=== PATIENT | male | born 2000 | race Caucasian/White ===

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

== ENCOUNTER 2019-01-21 15:35 | Emergency (ER) | payer OTHER ==
[2019-01-21 15:39] VITALS: TEMP 98.6
[2019-01-21] MEDS ORDERED: PANTOPRAZOLE 40 MG/10 ML VIAL IVP STA (16:14)
[2019-01-21] MEDS ORDERED: METOCLOPRAMIDE 5 MG/ML 2 ML VIAL IVP STA (16:14)
[2019-01-21] MEDS ORDERED: SODIUM CHLORIDE 0.9% 1,000 ML IV STA (16:14)
--- NOTE | 2019-01-21 16:20 | ED ---
General Adult HPI - General Chief complaint: Abdominal Pain Stated complaint: NVD Time Seen by Provider: 01/21/19 15:43 Source: patient, family, RN notes reviewed, old records reviewed Mode of arrival: ambulatory Limitations: no limitations - History of Present Illness Initial comments: Chief complaint and history of present illness is a 18-year-old male here with his significant other. The patient was seen last night at another emergency room. His complaint and same as it is now. They told him to come here should his problem persists. Patient has had nausea vomiting upset stomach for many years. He states it started when he was younger. He thinks could be related to anxiety. The patient also admits to smoking marijuana to 3 times per day. We did discuss possible cause and effect of anxiety and marijuana use and abuse. The patient also has had emotional problems in the past. He will be contacting [facility] when he returns to his home town. Denying any thoughts of suicide or severe depression at this time. - Related Data Home Medications Medication Instructions Recorded Confirmed Lisdexamfetamine Dimesylate 60 mg PO QAM 07/22/17 07/22/17 [Vyvanse] Previous Rx's Medication Instructions Recorded FLUoxetine HCL [PROzac] 20 mg PO DAILY #30 cap 07/26/17 Famotidine [Pepcid] 20 mg PO DAILY #30 tablet 01/21/19 Ondansetron Odt [Zofran Odt] 4 mg PO Q8HR PRN #10 tab 01/21/19 Allergies Allergy/AdvReac Type Severity Reaction Status Date / Time No Known Allergies Allergy Verified 01/21/19 15:38 Review of Systems ROS Statement: Those systems with pertinent positive or pertinent negative responses have been documented in the HPI. Review of systems. No headache or visual acuity. No chest pain. Occasional epigastric discomfort. States he vomits frequently. Smoked marijuana 2-3 times per day for the past year. Started smoking was 15. Patient states he does not see any blood in the vomit. Difficult to keep even fluids down at times. Patient admits that he's had depression and emotional issues and anxiety since his school age. He states his mother was alcoholic and was using marijuana and cocaine while he was in utero. Patient denies any significant medical problems other than the frequency of upset stomach anxiety nausea and vomiting. Patient's family history mother history as noted above. No cancers family. Patient denies ALLERGIES. Denies drugs. Other than marijuana. ROS Other: All systems not noted in ROS Statement are negative. Past Medical History Additional Past Medical History / Comment(s): orthostatic hypotension, alcohol affects. History of Any Multi-Drug Resistant Organisms: None Reported Past Surgical History: No Surgical Hx Reported Past Anesthesia/Blood Transfusion Reactions: No Reported Reaction Past Psychological History: ADD/ADHD, Anxiety, Depression Smoking Status: Current some day smoker Past Alcohol Use History: None Reported Past Drug Use History: Marijuana - Past Family History Father Additional Family Medical History / Comment(s): Pt was adopted at the age of 7yrs. His biological father was bipolar and depression. Mother Additional Family Medical History / Comment(s): Pts biological mother had depression. General Exam - General Exam Comments Initial Comments: General: The patient is awake and alert, in no distress, and does not appear acutely ill. Here because of chronic nausea vomiting. Vital signs temperature 98.6 pulse 74 respiratory rate 18 pulse ox 99% room air blood pressure 130/78. Eye: Pupils are equal, round and reactive to light, extra-ocular movements are intact; there is normal conjunctiva bilaterally. No signs of icterus. Ears, nose, mouth and throat: There are moist mucous membranes and no oral lesions. Neck: The neck is supple, there is no tenderness or JVD. Cardiovascular: There is a regular rate and rhythm. No murmur, rub or gallop is appreciated. Respiratory: Lungs are clear to auscultation, respirations are non-labored, breath sounds are equal. No wheezes, stridor, rales, or rhonchi. Gastrointestinal: Soft, non-distended, non-tender abdomen without masses or organomegaly noted. There is no rebound or guarding present. No CVA tenderness. Bowel sounds are unremarkable. Back: No complaint of back pain. Musculoskeletal: Normal ROM, no tenderness, There is no pedal edema. Neurological: CN II-XII intact, There are no obvious motor or sensory deficits. Coordination appears grossly intact. Speech is normal. No noted or any neuro deficits complained of. Skin: Skin is warm and dry and no rashes or lesions are noted. Psychiatric: Cooperative, appropriate mood & affect, normal judgment. Past history of obsessive disorder, depression. He takes Zoloft. States he is going to follow- up with [facility] in his county. Not complaining of any thoughts of suicide or depression at this time. Limitations: no limitations Course Vital Signs 01/21/19 01/21/19 01/21/19 15:36 17:30 17:42 Temperature 98.6 F Pulse Rate 74 100 92 Respiratory 18 20 18 Rate Blood Pressure 130/78 155/88 138/79 O2 Sat by Pulse 99 98 98 Oximetry Medical Decision Making - Medical Decision Making Medical decision making; this is a 18-year-old male here with his significant other. The patient has a complaint of chronic nausea and dry heaving. He does admit to smoking marijuana 2-3 times daily for the past year. We did discuss possible overuse abuse causing the symptoms he's had. But he also states that he had this for many years on again off again. The patient's white count is 8 hemoglobin 16 hematocrit of 46, potassium 4.3 with a BUN 13 creatinine 0.76 with a GFR greater than 90. Amylase lipase within normal limits. Patient had x-rays of the abdomen done reviewed by Dr. Del Toro. His reports includes unremarkable abdomen. Normal bowel gas pattern. No suspicious air-fluid levels. No organomegaly. The patient received IV fluids, IV Reglan and Protonix while in emergency room. The plan the patient has a prescription for Zofran which she'll be advised to use at home. Strongly advised to stop marijuana use. He will be referred onto GI. Patient also been advised to follow up with [facility] in [place]. Patient is not depressed. It appears that the patient may have had an adverse reaction to the Compazine. He was warned this is a common medication given for nausea and vomiting as well as Phenergan. And to keep this in mind in the future because of his chronic problems with nausea and vomiting. The patient was given IV Benadryl 50 mg with good effect. Patient be observed. His adverse reaction has subsided since stopped. - Lab Data Result diagrams: 01/21/19 16:30 01/21/19 16:30 Lab Results 01/21/19 01/21/19 Range/Units 16:30 16:30 WBC 8.0 (4.0-11.0) k/uL RBC 5.17 (4.30-5.90) m/uL Hgb 16.0 (13.0-17.5) gm/dL Hct 46.8 (39.0-53.0) % MCV 90.5 (80.0-100.0) fL MCH 30.9 (25.0-35.0) pg MCHC 34.1 (31.0-37.0) g/dL RDW 15.5 (11.5-15.5) % Plt Count 277 (150-450) k/uL Neutrophils % 73 % Lymphocytes % 19 % Monocytes % 5 % Eosinophils % 1 % Basophils % 1 % Neutrophils # 5.9 (1.3-7.7) k/uL Lymphocytes # 1.5 (1.0-4.8) k/uL Monocytes # 0.4 (0-1.0) k/uL Eosinophils # 0.1 (0-0.7) k/uL Basophils # 0.0 (0-0.2) k/uL Sodium 144 (137-145) mmol/L Potassium 4.3 (3.5-5.1) mmol/L Chloride 108 H (98-107) mmol/L Carbon Dioxide 25 (22-30) mmol/L Anion Gap 11 mmol/L BUN 13 (9-20) mg/dL Creatinine 0.76 (0.66-1.25) mg/dL Est GFR (CKD-EPI)AfAm >90 (>60 ml/min/1.73 sqM) Est GFR (CKD-EPI)NonAf >90 (>60 ml/min/1.73 sqM) Glucose 85 (74-99) mg/dL Calcium 10.5 H (8.4-10.2) mg/dL Total Bilirubin 0.8 (0.2-1.3) mg/dL AST 22 (17-59) U/L ALT 21 (21-72) U/L Alkaline Phosphatase 77 (38-126) U/L Total Protein 8.3 H (6.3-8.2) g/dL Albumin 5.1 H (3.5-5.0) g/dL Amylase 45 (30-110) U/L Lipase 56 (23-300) U/L Disposition Clinical Impression: Nausea and vomiting in adult Disposition: HOME SELF-CARE Condition: Fair Instructions (If sedation given, give patient instructions): Acute Nausea and Vomiting (ED) Additional Instructions: Try to stop chronic use of marijuana. Use prescriptions prescribed, Zofran and omeprazole. Use [id number] Tums or Rolaids for antacid relief. Frequent small meals. Follow-up with [facility] in [facility]. Follow-up with family doctor. Follow-up with [facility] Dr. Shrestha Prescriptions: Famotidine [Pepcid] 20 mg PO DAILY #30 tablet Ondansetron Odt [Zofran Odt] 4 mg PO Q8HR PRN #10 tab PRN Reason: Nausea, vomiting Is patient prescribed a controlled substance at d/c from ED?: No Referrals: Joce Johansen MD [Primary Care Provider] - 1-2 days Ashish Shrestha MD [STAFF PHYSICIAN] - 1-2 days Time of Disposition: 17:53
[2019-01-21 16:41] LABS: Basophils % (A) 1 %; Eosinophils # (A) 0.1 k/uL (0-0.7); Eosinophils % (A) 1 %; HCT 46.8 % (39.0-53.0); Lymphocytes # (A) 1.5 k/uL (1.0-4.8); Lymphocytes % (A) 19 %; MCH 30.9 pg (25.0-35.0); MCHC 34.1 g/dL (31.0-37.0); MCV 90.5 fL (80.0-100.0); Mean Platelet Volume 9.3; Monocytes # (A) 0.4 k/uL (0-1.0); Monocytes % (A) 5 %; Neutrophils # (A) 5.9 k/uL (1.3-7.7); Neutrophils % (A) 73 %; Platelet Count 277 k/uL (150-450); RBC 5.17 m/uL (4.30-5.90); RDW 15.5 % (11.5-15.5)
[2019-01-21 16:49] LABS: ALT 21 U/L (21-72); AST 22 U/L (17-59); Albumin 5.1 g/dL (3.5-5.0); Alkaline Phosphatase 77 U/L (38-126); Amylase 45 U/L (30-110); Anion Gap 11 mmol/L; Blood Urea Nitrogen 13 mg/dL (9-20); Calcium 10.5 mg/dL (8.4-10.2); Carbon Dioxide 25 mmol/L (22-30); Chloride 108 mmol/L (98-107); Glucose 85 mg/dL (74-99); Lipase 56 U/L (23-300); Potassium 4.3 mmol/L (3.5-5.1); Sodium 144 mmol/L (137-145); Total Bilirubin 0.8 mg/dL (0.2-1.3); Total Protein 8.3 g/dL (6.3-8.2)
--- NOTE | 2019-01-21 17:19 | XR ---
EXAMINATION TYPE: XR abdomen 2V DATE OF EXAM: 01/21/2019 COMPARISON: None INDICATION: Abdomen pain vomiting TECHNIQUE: 2 view abdomen frontal upright view and supine view FINDINGS: There is a normal bowel gas pattern. No suspicious air-fluid levels or differential air-fluid levels are present. No free air is present. Psoas margins are normal. No organomegaly is present. IMPRESSION: 1. Unremarkable Abdomen
[2019-01-21] MEDS ORDERED: diphenhydrAMINE 50 MG/ML 1 ML VIAL IVP STA (17:34)
[2019-01-21 18:14] VITALS: BP 125/71; PULSE 74; RESP 18
== END 2019-01-21 18:23 | disposition home or self-care (01) ==
LOC: EC 15:35
DX: R11.2 Nausea with vomiting, unspecified (principal); F12.90 Cannabis use, unspecified, uncomplicated; F32.9 Major depressive disorder, single episode, unspecified; F90.9 Attention-deficit hyperactivity disorder, unspecified type; F17.200 Nicotine dependence, unspecified, uncomplicated; Z79.899 Other long term (current) drug therapy; Z81.8 Family history of other mental and behavioral disorders
CPT/HCPCS: 36415; 80053; 82150; 83690; 85025; 74019; 99284; 96374; 96375 ×2; 96361; J1200; J2765; C9113

== ENCOUNTER 2019-01-22 14:19 | Emergency (ER) | payer OTHER ==
[2019-01-22 14:29] VITALS: BP 121/68; PULSE 87; RESP 18; TEMP 98.6
[2019-01-22] MEDS ORDERED: ONDANSETRON ODT 4 MG TAB PO STA (14:36)
[2019-01-22] MEDS ORDERED: FAMOTIDINE 20 MG TAB PO STA (14:37)
[2019-01-22] MEDS ORDERED: LORazepam 1 MG TAB PO STA (14:37)
--- NOTE | 2019-01-22 14:43 | ED ---
General Adult HPI - General Chief complaint: Anxiety Stated complaint: Anxiety Time Seen by Provider: 01/22/19 14:30 Source: patient, RN notes reviewed Mode of arrival: ambulatory Limitations: no limitations - History of Present Illness Initial comments: This is a 18-year-old male who presents emergency department stating that he has a history of anxiety but is no longer any medication. Patient states he has been having episodes of vomiting since October. Patient states was seen in emergency department yesterday for and he believes it may be related to his anxiety. Patient also states she smokes marijuana at least twice a day. Patient states today he felt tingling in his hands and feet and numbness around his mouth and then he had carpal pedal spasms. Patient states this occurred yesterday when he was in the emergency department. Patient states he has no abdominal pain. Patient denies any back pain. Patient denies any fever chills per patient denies any diarrhea. Patient denies headache patient denies numbness weakness. Patient denies any difficulty breathing shortness of breath or chest pain. - Related Data Home Medications Medication Instructions Recorded Confirmed Lisdexamfetamine Dimesylate 60 mg PO QAM 07/22/17 07/22/17 [Vyvanse] Previous Rx's Medication Instructions Recorded FLUoxetine HCL [PROzac] 20 mg PO DAILY #30 cap 07/26/17 Famotidine [Pepcid] 20 mg PO DAILY #30 tablet 01/21/19 Ondansetron Odt [Zofran Odt] 4 mg PO Q8HR PRN #10 tab 01/21/19 Allergies Allergy/AdvReac Type Severity Reaction Status Date / Time metoclopramide [From Reglan] AdvReac Unknown Verified 01/22/19 14:29 Review of Systems ROS Statement: Those systems with pertinent positive or pertinent negative responses have been documented in the HPI. ROS Other: All systems not noted in ROS Statement are negative. Past Medical History Additional Past Medical History / Comment(s): orthostatic hypotension, alcohol affects. History of Any Multi-Drug Resistant Organisms: None Reported Past Surgical History: No Surgical Hx Reported Past Anesthesia/Blood Transfusion Reactions: No Reported Reaction Past Psychological History: ADD/ADHD, Anxiety, Depression Smoking Status: Current some day smoker Past Alcohol Use History: None Reported Past Drug Use History: Marijuana - Past Family History Father Additional Family Medical History / Comment(s): Pt was adopted at the age of 7yrs. His biological father was bipolar and depression. Mother Additional Family Medical History / Comment(s): Pts biological mother had depression. General Exam - General Exam Comments Initial Comments: GENERAL: Patient is well-developed and well-nourished. Patient is nontoxic and well- hydrated and is in mild distress. ENT: Neck is soft and supple. No significant lymphadenopathy is noted. Oropharynx is clear. Moist mucous membranes. Neck has full range of motion without eliciting any pain. EYES: The sclera were anicteric and conjunctiva were pink and moist. Extraocular movements were intact and pupils were equal round and reactive to light. Eyelids were unremarkable. PULMONARY: Unlabored respirations. Good breath sounds bilaterally. No audible rales rhonchi or wheezing was noted. CARDIOVASCULAR: There is a regular rate and rhythm without any murmurs gallops or rubs. SKIN: Skin is clear with no lesions or rashes and otherwise unremarkable. NEUROLOGIC: Patient is alert and oriented x3. Cranial nerves II through XII are grossly intact. Motor and sensory are also intact. Normal speech, volume and content. Symmetrical smile. MUSCULOSKELETAL: Normal extremities with adequate strength and full range of motion. No lower extremity swelling or edema. No calf tenderness. LYMPHATICS: No significant lymphadenopathy is noted PSYCHIATRIC: Patient is very anxious. Limitations: no limitations Course Vital Signs 01/22/19 14:27 Temperature 98.6 F Pulse Rate 87 Respiratory 18 Rate Blood Pressure 121/68 O2 Sat by Pulse 96 Oximetry Disposition Clinical Impression: Acute anxiety, Cannabinoid hyperemesis syndrome Disposition: HOME SELF-CARE Condition: Good Instructions (If sedation given, give patient instructions): Generalized Anxiety Disorder (ED) Additional Instructions: Patient should take his Zofran and Pepcid as prescribed yesterday. Patient should follow up tomorrow with [facility] for treatment for his anxiety. Stop smoking marijuana Is patient prescribed a controlled substance at d/c from ED?: No Referrals: Joce Johansen MD [Primary Care Provider] - 1-2 days Time of Disposition: 14:42
== END 2019-01-22 15:22 | disposition home or self-care (01) ==
LOC: EC 14:19
DX: F12.988 Cannabis use, unspecified with other cannabis-induced disorder (principal); R11.10 Vomiting, unspecified; F41.9 Anxiety disorder, unspecified; R20.2 Paresthesia of skin; F90.9 Attention-deficit hyperactivity disorder, unspecified type; F32.9 Major depressive disorder, single episode, unspecified; Z79.899 Other long term (current) drug therapy; Z88.8 Allergy status to other drugs, medicaments and biological substances; Z81.8 Family history of other mental and behavioral disorders
CPT/HCPCS: 99283